=== PATIENT | female | born 1975 | race African-American/Black ===

== ENCOUNTER 2018-04-12 13:27 | Emergency (ER) | payer MEDICARE, OTHER ==
[2018-04-12 16:37] LABS: URINE BLOOD (Dip) POC 1+ (NEGATIVE); URINE GLUCOSE (Dip) POC Negative (NEGATIVE); URINE KETONES (Dip) POC Negative (NEGATIVE); URINE LEUKOCYTE EST (Dip) POC Negative (NEGATIVE); URINE NITRITE (Dip) POC Negative (NEGATIVE); URINE TOTAL PROTEIN POC Negative (NEGATIVE)
[2018-04-12 16:37] LABS: URINE PH (Dip) POC 6.5 (5.0-8.5)
== END 2018-04-12 17:11 | disposition home or self-care (01) ==
LOC: FTE 13:27
DX: J40 Bronchitis, not specified as acute or chronic (principal); G89.29 Other chronic pain; I10 Essential (primary) hypertension; Z76.0 Encounter for issue of repeat prescription
CPT/HCPCS: 71046; 81003; 99284-25